=== PATIENT | male | born 1985 ===

== ENCOUNTER 2018-06-02 10:12 | Emergency (ER) | payer OTHER ==
[~2018-06-02] VITALS: Ht 182.9 cm; Wt 83.9 kg
[2018-06-02] MEDS ORDERED: AMOX1TAB5 PO (15:27)
== END 2018-06-02 16:54 | disposition home or self-care (01) ==
LOC: EDBD 10:12 → ER 10:12
DX: S81.822A Laceration with foreign body, left lower leg, initial encounter (principal); W26.8XXA Contact with other sharp object(s), not elsewhere classified, initial encounter; Y93.89 Activity, other specified; Y92.488 Other paved roadways as the place of occurrence of the external cause; Y99.8 Other external cause status

== ENCOUNTER 2018-06-05 17:39 | Emergency (ER) | payer OTHER ==
[~2018-06-05] VITALS: Ht 182.9 cm; Wt 86.2 kg
[~2018-06-05 17:39] MED LIST: AMOX1TAB5 PO
== END 2018-06-05 21:55 | disposition home or self-care (01) ==
LOC: ER 17:39
DX: S81.821D Laceration with foreign body, right lower leg, subsequent encounter (principal); Z48.01 Encounter for change or removal of surgical wound dressing; W26.8XXD Contact with other sharp object(s), not elsewhere classified, subsequent encounter